=== PATIENT | female | born 1970 | race Caucasian/White ===

== ENCOUNTER → 2022-04-03 | Outpatient (CLI) | payer OTHER | LOC: CT 16:00 | DX: R51.9 Headache, unspecified (principal) | CPT/HCPCS: 70450 ==

== ENCOUNTER → 2022-04-06 | Outpatient (CLI) | payer OTHER | LOC: CT 10:00 | DX: C79.31 Secondary malignant neoplasm of brain (principal); G93.9 Disorder of brain, unspecified; R05.9 Cough, unspecified | CPT/HCPCS: 71260; Q9967 ==

== ENCOUNTER → 2022-04-09 | Outpatient (CLI) | payer OTHER ==
[~2022-04-09] MED LIST: DEXAMETHASONE6 MG PO; ELIQUIS5 MG PO; SERTRALINE HCL100 MG PO; SERTRALINE HCL50 MG PO
== END ==
LOC: MRI 13:07
DX: C79.31 Secondary malignant neoplasm of brain (principal); C80.1 Malignant (primary) neoplasm, unspecified
CPT/HCPCS: 70553; A9577

== ENCOUNTER → 2022-04-10 | Day surgery (SDC) | payer OTHER | END | disposition home or self-care (01) | LOC: OR 09:48 | DX: C34.12 Malignant neoplasm of upper lobe, left bronchus or lung (principal); G93.9 Disorder of brain, unspecified; F17.200 Nicotine dependence, unspecified, uncomplicated; M16.11 Unilateral primary osteoarthritis, right hip; Z88.8 Allergy status to other drugs, medicaments and biological substances; Z88.5 Allergy status to narcotic agent; Z79.01 Long term (current) use of anticoagulants | CPT/HCPCS: J2250; J2704 ==